=== PATIENT | female | born 1945 ===

== ENCOUNTER 2017-12-02 10:15 | Inpatient (IN) | payer MEDICARE ==
[2017-12-02 10:26] LABS: #Lymphocytes 1.1 thou/uL (1.20-3.40); #Monocytes 0.7 thou/uL (0.11-0.59); #Neutrophils 7.5 thou/uL (1.40-6.50); %Basophils 0.4 % (0.0-1.0); %Eosinophils 0.2 % (0.0-10.0); %Lymphocytes 11.8 % (21.0-51.0); %Monocytes 7.8 % (0.0-10.0); %Neutrophils 79.8 % (42.0-75.0); Hemoglobin 9.5 g/dL (12.0-16.0); Mean Corpuscular HGB CONC 32.3 g/dL (32.0-36.0); Mean Corpuscular Hemoglobin 30.4 pg (27.0-31.0); Mean Corpuscular Volume 94.1 fl (81.0-99.0); Mean Platelet Volume 8.8 fL (7.4-10.4); Platelet Count 174 thou/uL (130-400); Red Blood Cell (RBC) Count 3.11 mill/uL (4.20-5.40); White Blood Cell (WBC) Count 9.5 thou/uL (4.8-10.8)
[2017-12-02 10:35] LABS: INR-International Normal Ratio 1.1; Prothrombin Time 14.7 SEC (12.0-14.7)
[2017-12-02] MEDS ORDERED: levETIRAcetam 500 MG/100 ML PREMIX BAG ONE (10:38)
[2017-12-02 10:40] LABS: ALT (SGPT) 7 U/L (8-55); AST (SGOT) 13 U/L (5-34); Albumin 2.7 g/dL (3.4-4.8); Alkaline Phosphatase 81 U/L (40-150); Anion Gap 9 mmol/L (10-20); BUN (Urea Nitrogen) 20 mg/dL (9.8-20.1); Bilirubin, Total 0.5 mg/dL (0.2-1.2); Calc. Creatinine Clearance 0 mL/min (70-130); Calcium 7.6 mg/dL (7.8-10.44); Carbon Dioxide 18 mmol/L (23-31); Chloride 113 mmol/L (98-107); Estimated GFR-MDRD 85; Glucose 107 mg/dL (83-110); Potassium 4.1 mmol/L (3.5-5.1); Protein, Total 4.7 g/dL (6.0-8.3); Sodium 136 mmol/L (136-145)
--- NOTE | 2017-12-02 11:25 | RAD ---
PORTABLE AP CHEST: Date: 12/02/17 HISTORY: Patient found down by son this morning. Bleeding out of ear and nose. Patient intubated. COMPARISON: None available. FINDINGS: Cardiac pacing device overlies the right chest. Endotracheal tube is noted in place with tip overlyin g T5-6 level and just above the level of the akira. A left subclavian central venous catheter is not ed in place with tip overlying the expected location of the cavoatrial junction. Patient is rotated, limiting adequate evaluation of positioning. Postsurgical changes related to CABG are noted. Coronary artery stent overlies the left cardiac border. The lungs are clear. Degenerative changes seen in the spine. IMPRESSION: 1. Endotracheal tube and left subclavian central venous catheter noted in place. 2. No acute cardiopulmonary process. POS: [facility]
--- NOTE | 2017-12-02 11:48 | CT ---
NONCONTRAST HEAD CT CTA HEAD WITH 3D VOLUME RENDERING: CLINICAL HISTORY: Altered mental status. Patient found down with head bleeding, suspected aneurysmal rupture (SAH). FINDINGS: Diffuse subarachnoid hemorrhage is present, which is most pronounced within the suprasellar region. A discrete aneurysm is not identified. There is presumed congenital dominion of volume of A1 segment , left NELLY. Bilateral middle cerebral arteries are patent. The imaged bilateral ICAs reveal no high grade stenosis. There is no discrete basilar tip aneurysm. There is a small volume right subdural h emorrhage overlying the right cerebral convexity. A mild degree of intraventricular hemorrhage is pr esent. There is no significant midline shift. There is mild prominence of the ventricular system an d a mild degree of periventricular leukomalacia. Age indeterminate lacunar infarctions are seen with in the thalami bilaterally. There is a left temporoparietal scalp contusion/laceration. IMPRESSION: Diffuse subarachnoid hemorrhage, as well as superimposed subdural hematoma. The distribution of the subarachnoid hemorrhage favors a ruptured aneurysm, although a discrete aneurysm is not identified th at could be related to a thrombosed aneurysm or associated vasospasm from the acute hemorrhage. Ther e is intraventricular hemorrhagic extension with mild prominence of the ventricular system. Recommen d neurosurgical consultation. These findings were conveyed, via telephone, to the emergency room physician, Dr. Odilon Ferrara, as well as to the patient's surgeon, Dr. Umer Marks, at 1050 hours on 12/02/2017. CODE CR POS: [facility]
[2017-12-02 12:05] LABS: Actual Bicarbonate (HCO3a) 18.2 mEq/L (22-26); CO2 Tension 35.3 mmHg (35.0-45.0); Hematocrit-ABG 29.5 % (36.0-47.0); Hemoglobin (Hb) 9.3 g/dL (12.0-16.0); O2 Tension (PaO2) 119.4 mmHg (80.0-100.0); pH, Arterial 7.33 (7.35-7.45)
[2017-12-02 12:06] LABS: ALV-art Gradient 121.675 (0-20); Calcium, Ionized 1.1 mmol/L (1.12-1.30); Puncture Site LBA
[2017-12-02] MEDS ORDERED: Dextrose 50% Abboject 50 ML SYRINGE SLOW IVP PRN (12:21)
[2017-12-02] MEDS ORDERED: Dextrose 5% in Water 1,000 ML IV PRN (12:21)
[2017-12-02 12:25] VITALS: BMI 18.2
--- NOTE | 2017-12-02 12:31 | HP ---
HISTORY OF PRESENT ILLNESS: This is a 72-year-old woman who apparently fell down from grou nd level position at home. This was not witnessed. According to the patient's adult son the patient had multiple episodes of nausea and emesis. Soon after that the son heard a thump and apparently th e patient had fallen. He responded to his mother who was unresponsive at the time. 911 was activate d. Responding EMS found the patient in agonal respiration with a lot of vomitus on her face. The patien t was actively seizing. The seizure was interrupted with 2 mg of Ativan. The patient was then trans ported to [facility] where she was evaluated. She had external markers of trauma including bloody nares and blood from the left auditory canal. The patient was intubated at the [facility] [place] to transport to [facility]. Following brief trauma workup, the patient is transferred via ambulance to [facility] in [place], [place]. She arrived though hemodynamically stable. She was sedated and pharmacologically paralyzed. On arriving [place] coma scale was noted at 3. The patient underwent a complete physical and neuro logical examination in the emergency department. ET tube position was confirmed. The CT scan of the brain which was obtained in [place] revealed a subarachnoid hemorrhage suspiciou s for aneurysmal rupture. The patient was then taken down for repeat CT scan of the brain, this time with IV contrast to exclude aneurysmal rupture. PAST MEDICAL HISTORY: Remarkable for coronary arterial disease, degenerative arthritic disease, esse ntial hypertension and cataracts. SURGICAL HISTORY: Pertinent for coronary arterial bypass graft, left hip arthroplasty and bilateral intraocular lens implantation. SOCIAL HISTORY: According to the patient's family is negative for tobacco, ethanol or illicit drug a buse. FAMILY HISTORY: Noncontributory for this patient's age. PREHOSPITALIZATION MEDICATIONS: Include duloxetine 30 mg p.o. at bedtime, Plavix 75 mg p.o. daily, i sosorbide mononitrate 120 mg ER p.o. at bedtime, Ranexa 1000 mg p.o. b.i.d., aspirin 81 mg p.o. daily , lisinopril 10 mg p.o. b.i.d., atorvastatin 20 mg p.o. daily, gabapentin 200 mg p.o. t.i.d., Singula ir 10 mg p.o. at bedtime, Meloxicam 15 mg p.o. daily and tramadol 50 mg p.o. q.6h. p.r.n. pain. ALLERGIES: The patient apparently has no known drug allergies. REVIEW OF SYSTEMS: Review of systems could not be obtained as the patient is sedated and pharmacolog ically paralyzed on mechanical ventilatory support. PHYSICAL EXAMINATION: GENERAL: This reveals a 72-year-old normally developed woman who is in a coma, but otherwise hemodyn amically stable. VITAL SIGNS: Initial vital signs includes blood pressure 103/57, pulse 58, respiration rate 12, temp erature 99.5 degrees Fahrenheit, oxygen saturation 100% on FiO2 of 100%. End-tidal CO2 at that time was noted at 21. HEENT: Reveals pupils equal, 2 mm bilaterally and reactive to light, sluggishly. The patient has bl oody nares. Left tympanic membrane is obscured by a left hemotympanum. Right tympanic membrane is v isualized. The remainder of the head and face are atraumatic. The patient is orally intubated with a #7 endotracheal tube. CHEST: Chest wall is stable. No gross deformities or step-offs are present. There is minor bruisin g about the chest, but no lacerations present. No subcutaneous emphysema is palpated. HEART: Reveals regular rate and rhythm, no murmurs or gallops auscultated. LUNGS: Clear to auscultation bilaterally. Breathing regular and unlabored. ABDOMEN: Soft, nontender, nondistended. Bowel sounds in all 4 quadrants appear normoactive. EXTREMITIES: There are 2+ radial and pedal pulses bilaterally. No ankle edema is present. NEUROLOGIC: The patient is in deep coma with [place] coma scale of 3. However, as time passed durin g our evaluation, the patient was awakening from sedation and paralytics. [place] coma scale had imp roved to E2 M5 V1T. MUSCULOSKELETAL: Reveals 2/5 muscle strength in both upper and lower extremities which I attribute t o sedatives. Thoracic and lumbar spine were palpated free of any abnormalities. PERTINENT LABORATORY FINDINGS: Includes CBC here with 9500 white blood cells, hemoglobin 9.5, hemato crit is 29.3, platelet count 174,000. PTT and INR normal at 25 seconds and 1.1 respectively. Metabolic profile: Sodium 136, potassium is 4.1, chloride is 113, bicarbonate 18, BUN 20, creatinine 0.68, glucose 107, total bilirubin 0.5, AST and ALT noted at 13 and 7 respectively. Amylase is norm al at 29.0. I have personally reviewed the CT scan of the brain which was obtained from [facility] revealing gener alized subarachnoid hemorrhage with no mass effects. CT scan of the cervical spine reveals degenerative arthritic disease; however, no acute fracture or d islocation is noted. Repeat CT scan of the brain with a CT angiography confirms the generalized subarachnoid hemorrhage an d a right convexity small subdural hematoma with no mass effects. No evidence of aneurysm is present . Chest x-ray confirmed proper placement of the endotracheal tube, central venous catheter placement, n o pneumothorax present. IMPRESSION: 1. Status post ground level fall. 2. Generalized subarachnoid hemorrhage. 3. Right convexity subdural hematoma. 4. Left basilar skull fracture. 5. Acute posttraumatic respiratory failure. 6. Acute post-traumatic seizure. 7. Qualitative platelet dysfunction. 8. History of coronary artery disease. 9. History of essential hypertension. PLAN: 1. Neurosurgical consultation with Dr. Giron regarding the traumatic brain injury. 2. We will transfuse the patient with platelets for qualitative platelet dysfunction. 3. We will continue with full mechanical ventilatory support until the patient is neurologically sta ble. 4. We will maintain very light or no sedation in order to optimize neurological examination. 5. The patient will be loaded with Keppra for seizure prophylaxis. 6. Initiate nonpharmacological VTE prophylaxis. 7. Initiate prophylaxis for gastritis. 8. Blood pressure control will be undertaken. Goal is to maintain systolic blood pressure less than 160. The above findings and plan will be communicated to the patient's family once they arrive. Total critical care time is 75 minutes.
[2017-12-02] MEDS: Acetaminophen 1,000 MG in Premix Bag 1 BAG IVPB SCH ×3 (12:48→23:24)
[2017-12-02] MEDS: Sodium Chloride 0.9% 1,000 ML IV SCH ×2 (12:54→23:24)
[2017-12-02] MEDS ORDERED: FLU VACC TS2017-18 (>65YR) 0.5 ML SYRINGE IM ONE (14:15)
--- NOTE | 2017-12-02 14:39 | PRG ---
DATE OF SERVICE: 12/02/2017 This is a 30 minute initial hospital visit note in which 30 minutes were spent in review the imaging record, evaluation and examination of the patient, and formulation of a plan. Greater than 50% of th e time was spent in counseling on Jada Olvera. CHIEF COMPLAINT: Diffuse subarachnoid hemorrhage with acute subdural hematoma status post fall. HISTORY OF PRESENT ILLNESS: Ms. Olvera is a 72-year-old woman who was found down by her son. There w as evidently nausea and vomiting prior to the fall. Nevertheless she fell, struck the left side of h er skull and there is evidence of blood in the petrous temporal bone and mastoid air cells. There is also a right-sided acute subdural hematoma with subarachnoid hemorrhage in the sylvian fissure and c istern consistent with what appears to be an aneurysm rupture; however, CT angiogram of the brain is negative for aneurysmal source. She is on Plavix for history cardiac bypass surgery. She has been g iven platelets. PHYSICAL EXAMINATION: On my exam, she is intubated. By report, Dr. Marks has gotten her to follow amanda apodacamands, but she has localized and has opened her eyes to voice as well for a GCS of 10T IMPRESSION AND PLAN: We will continue to follow her exam closely. I would like to repeat a CT angio gram this weekend just to make sure there is not a hidden aneurysm. This certainly could be a trauma tic subarachnoid and subdural hemorrhage related to her fall, especially with the patient on Plavix. I have updated her family. DIAGNOSES: Diffuse subarachnoid hemorrhage and acute subdural hematoma status post fall.
[2017-12-02] MEDS ORDERED: Hydrocortisone Sod Succ/PF 100 mg/2 ml Vial IVP SCH (15:30)
[2017-12-02] MEDS ORDERED: ISOVUE-370 76%-LOCM 1 ML ONE (16:36)
[2017-12-02] MEDS: Ondansetron HCl/PF 4 MG/2 ML Vial IVP PRN (19:42)
[2017-12-02] MEDS: Famotidine/PF 20 mg/2ml Vial SLOW IVP SCH (20:55)
[2017-12-02] MEDS: Hydrocortisone Sod Succ/PF 100 mg/2 ml Vial IVP SCH (21:00)
[2017-12-02] MEDS ORDERED: Midazolam HCl 2 mg/2 ml Vial SLOW IVP PRN (21:06)
[2017-12-02] MEDS: Fentanyl 100 MCG/2 ML VIAL SLOW IVP PRN (23:29)
--- NOTE | 2017-12-02 23:31 | PRG ---
DATE OF SERVICE: 12/02/2017 SUBJECTIVE: The patient is a 72-year-old female status post falls from ground level with brain injur y. She is in the mechanical ventilation at this time, she is in bed, no complaints are noted. She i s easily arousable, painful and focal stimulation. OBJECTIVE: VITAL SIGNS: Has been reviewed, otherwise noted as, patient's blood pressure has been somewhat on th e lower side. Dr. Marks has been aware of this. We will continue to monitor. NEUROLOGIC: GCS on my examination is . ASSESSMENT: This is a 72-year-old female status post falls with brain injury, continue care as detai led in the daily progress note and history and physical. Continue to monitor. We will repeat CT in the a.m.
[2017-12-03] MEDS ORDERED: Midazolam HCl 2 mg/2 ml Vial SLOW IVP SCH (00:45)
[2017-12-03] MEDS ORDERED: Fentanyl 100 MCG/2 ML VIAL SLOW IVP SCH ×2 (01:30→04:45)
[2017-12-03] MEDS: Fentanyl 100 MCG/2 ML VIAL SLOW IVP PRN (02:46)
[2017-12-03] MEDS: Hydrocortisone Sod Succ/PF 100 mg/2 ml Vial IVP SCH ×4 (04:05→21:50)
[2017-12-03] MEDS ORDERED: Fentanyl 100 MCG/2 ML VIAL SLOW IVP PRN (04:42)
[2017-12-03 05:58] LABS: #Lymphocytes 0.8 thou/uL (1.20-3.40); #Monocytes 0.4 thou/uL (0.11-0.59); #Neutrophils 5.8 thou/uL (1.40-6.50); %Lymphocytes 10.8 % (21.0-51.0); %Monocytes 6.1 % (0.0-10.0); Hemoglobin 8.5 g/dL (12.0-16.0); Mean Corpuscular HGB CONC 31.7 g/dL (32.0-36.0); Mean Corpuscular Hemoglobin 30.5 pg (27.0-31.0); Mean Corpuscular Volume 95.9 fl (81.0-99.0); Mean Platelet Volume 8.8 fL (7.4-10.4); Platelet Count 202 thou/uL (130-400); RBC Distribution Width 13.3 % (11.5-14.5)
[2017-12-03 06:25] LABS: Anion Gap 11 mmol/L (10-20); BUN (Urea Nitrogen) 15 mg/dL (9.8-20.1); Calc. Creatinine Clearance 54 mL/min (70-130); Calcium 7.9 mg/dL (7.8-10.44); Carbon Dioxide 17 mmol/L (23-31); Chloride 116 mmol/L (98-107); Estimated GFR-MDRD 82; Glucose 110 mg/dL (83-110); Potassium 3.8 mmol/L (3.5-5.1); Sodium 140 mmol/L (136-145)
[2017-12-03 06:40] LABS: CO2 Tension 31.6 mmHg (35.0-45.0); O2 Tension (PaO2) 132.1 mmHg (80.0-100.0); pH, Arterial 7.34 (7.35-7.45)
[2017-12-03 06:41] LABS: Actual Bicarbonate (HCO3a) 16.8 mEq/L (22-26); Base Excess (BEa) -8.1 mEq/L (0 (+/-) 2.5); Calcium, Ionized 1.2 mmol/L (1.12-1.30); Hematocrit-ABG 26.4 % (36.0-47.0); Hemoglobin (Hb) 8.4 g/dL (12.0-16.0); Puncture Site RBA
[2017-12-03] MEDS: Acetaminophen 1,000 MG in Premix Bag 1 BAG IVPB SCH ×2 (06:49→11:09)
[2017-12-03] MEDS ORDERED: Furosemide 40 MG/4 ML VIAL ONE (08:16)
[2017-12-03] MEDS: Sodium Chloride 0.9% 1,000 ML IV SCH ×2 (08:20→21:41)
[2017-12-03] MEDS: Famotidine/PF 20 mg/2ml Vial SLOW IVP SCH ×2 (08:22→21:50)
[2017-12-03] MEDS: Atorvastatin Calcium 20 MG TAB PO SCH (08:22)
[2017-12-03] MEDS ORDERED: Furosemide 20 MG/2 ML VIAL SLOW IVP SCH (08:30)
--- NOTE | 2017-12-03 08:52 | CT ---
PRELIMINARY REPORT/[facility]/EMERGENCY AFTER HOURS PROCEDURE: EXAM: CT Head Without Intravenous Contrast CLINICAL HISTORY: 72 years old, female; Condition or disease; Other: Hemorrhage; Patient HX: F/u tbi TECHNIQUE: Axial computed tomography images of the head/brain without intravenous contrast. COMPARISON: CTA Angio Head W GAEL Melgoza 2017-12-02 10:24 FINDINGS: As before, prominent diffuse subarachnoid blood is present, probably not significantly changed in the interval. Small amount of intraventricular blood in the occipital horns of the lateral ventricles, unchanged. Small right subdural hematoma, maximum thickness about 3 mm, unchanged. Small amount of subdural or subarachnoid blood layering along the right tentorium, probably not signi ficantly changed. No definite new hemorrhage in the interval. Probably no significant mass effect or midline shift at this time. Ventricle size is stable, within normal limits. There is relatively symmetrical decreased attenuation in the periventricular white matter, likely fro m microvascular disease. Suspect very small old lacunar infarcts in the basal ganglia regions bilaterally, and left thalamus. No definite acute infarct by CT. No definite acute skull fracture. Mild opacity/fluid in the ethmoid sinuses. Included paranasal sinuses otherwise appear essentially clear. IMPRESSION: Essentially stable diffuse subarachnoid, right subdural, and intraventricular blood. See above detail s. No definite new hemorrhage in the interval. Probably no significant mass effect or midline shift. Changes of microvascular disease, and old lacunar infarcts. Thank you for allowing us to participate in the care of your patient. Dictated and Authenticated by: Tomasz Mcknight MD 12/03/2017 4:10 AM Central Time ([place] & [place]) FINAL REPORT EMERGENCY AFTER HOURS NONCONTRAST CT HEAD: Date: 12/03/17 HISTORY: Traumatic brain injury. COMPARISON: CT head and CT angiogram head on 12/02/17. IMPRESSION: 1. Again noted are scattered areas of subarachnoid hemorrhage seen throughout the cerebral hemispher es bilaterally. 2. Stable small right subdural hematoma. 3. Intraventricular hemorrhage, which may be slightly increased on the right. 4. Chronic small vessel ischemic changes. No acute cortical infarction is seen. 5. No new areas of hemorrhage are identified. 6. Opacification of left mastoid air cells. This is unchanged from prior study. Mucosal thickening i s also again present in ethmoidal air cells and each sphenoid sinus with endotracheal tube noted in p lace. Findings are in agreement with the preliminary report by Miguel. POS: [facility]
--- NOTE | 2017-12-03 10:41 | RAD ---
PORTABLE AP CHEST: Date: 12/03/17 HISTORY: Respiratory failure. COMPARISON: 12/02/17. FINDINGS: Endotracheal tube and left subclavian central venous catheter remain in place and unchanged in positi on. There has been interval placement of a nasogastric tube with tip overlying the expected location of the gastric fundus. Postsurgical changes related to CABG are again present. Coronary artery stents overlie the left cardiac border. There is increased density at the medial right lung base probably r elated to an epicardial fat pad. Lungs are otherwise clear. Pacing device overlying the right chest i s no longer present. No other interval change. IMPRESSION: 1. Interval placement of a nasogastric tube. Remaining lines and tubes are stable in position. 2. No acute cardiopulmonary process. POS: [facility]
--- NOTE | 2017-12-03 10:47 | PRG ---
DATE OF SERVICE: 12/03/2017 This is a 15-minute subsequent visit note in which 15 minutes were spent in review of the imaging rec ord, evaluation and examination of the patient, and formulation of a plan. Greater than 50% of the t ramakrishna was spent in counseling on Jada Olvera. Ms. Olvera has now been extubated. She follows command s in all 4 extremities and appears to be certainly neurologically improving. Her head CT this mornin g demonstrates some improvement in the multi-compartmental intracranial blood products with no worris ome enlargement in her ventricular system. We will continue to follow along closely with a plan to r epeat a CT angiogram of the brain over the next few days while her bleed pattern looks as if it is co nsistent with an aneurysm rupture. We have found nothing on the initial CT angiogram. Of note, she likely has a left temporal bone fracture in the skull base, but it is very difficult to ascertain thi s on the head CT. Nevertheless, she does have blood in her petrous and mastoid air cells. We will c sheba to follow along. DIAGNOSIS: Subarachnoid hemorrhage with fall.
--- NOTE | 2017-12-03 11:11 | PRG ---
DATE OF SERVICE: 12/03/2017 SUBJECTIVE: Ms. lOvera is a 72-year-old woman who is status post ground level fall sustaining severe acute traumatic brain injury. She is currently on mechanical ventilatory support. She is slightly s edated. She awakens to voice, moves all extremities and follows commands. Overnight, her blood pres sure has been stable. No seizure activities were documented overnight. PHYSICAL EXAMINATION: VITAL SIGNS: Currently includes blood pressure 122/48, pulse is 80, respiratory rate is 9, maximum t emperatures since admission is 99.5 degrees Fahrenheit, and oxygen saturation currently is 100% on Fi O2 of 40%. HEENT: Examination reveals decreased left hemotympanum. No active nasal discharge. Pupils are equa l, round, and reactive to light and accommodation. Extraocular muscles are intact bilaterally. No s cleral icterus present. The patient has no jugular distention noted. HEART: Reveals regular rate and rhythm, no murmurs or gallops auscultated. LUNGS: Clear to auscultation bilaterally. Her breathing is regular and unlabored. ABDOMEN: Soft, nontender and nondistended. NEUROLOGIC: Examination reveals no focal deficits present. LABORATORY DATA AND IMAGING DATA: Pertinent laboratory findings today includes CBC with 7,000 white blood cells, hemoglobin and hematocrit 8.5 and 26.9 respectively. Platelet count is 202,000. Metabo lic profile: Sodium 140, potassium is 3.8, chloride is 116, bicarbonate 17, BUN 15, creatinine 0.70, and glucose is 110. I have personally reviewed repeat CT scan of the brain today which shows resolving diffuse subarachno id hemorrhage. The right subdural hematoma remains stable. IMPRESSION: 1. Status post ground level fall. 2. Acute traumatic brain injury, stable. 3. Acute posttraumatic respiratory failure, improving. 4. Status post posttraumatic seizure disorder. No recurrent seizures since admission. PLAN: 1. We will wean mechanical ventilator support and extubate patient accordingly. 2. Initiate physical and occupational therapy. 3. Will ask speech and language pathologist to evaluate the patient with regards to cognition, speec h and swallow. 4. Continue with seizure prophylaxis at the discretion of the Neurosurgery Service. Above findings and plan discussed with patient's son at bedside. He indicates understanding of the i nformation given. I answered his questions. Total critical care time is 45 minutes.
--- NOTE | 2017-12-03 21:29 | PRG ---
DATE OF SERVICE: 12/03/2017 SUBJECTIVE: This is a 72-year-old female stats post ground level fall with traumatic brain injury. She was extubated today. She is resting comfortably in ICU, still exam remains stable. No other com plaints at this time. OBJECTIVE: VITAL SIGNS: Have been reviewed and otherwise stable. Physical exam is unremarkable other than notable in the progress note. ASSESSMENT AND PLAN: Continue care as detailed in the daily progress note as well continue to monito r PT/OT. DISCHARGE DISPOSITION: Pending.
[2017-12-04] MEDS: Hydrocortisone Sod Succ/PF 100 mg/2 ml Vial IVP SCH ×4 (05:00→21:18)
[2017-12-04] MEDS: Sodium Chloride 0.9% 1,000 ML IV SCH ×2 (05:52→12:58)
[2017-12-04] MEDS: Famotidine/PF 20 mg/2ml Vial SLOW IVP SCH ×2 (08:36→21:18)
[2017-12-04] MEDS: Ondansetron HCl/PF 4 MG/2 ML Vial IVP PRN (08:38)
[2017-12-04] MEDS: Atorvastatin Calcium 20 MG TAB PO SCH (08:38)
--- NOTE | 2017-12-04 15:15 | PRG ---
DATE OF SERVICE: 12/04/2017 This is a 15-minute subsequent visit note, in which 15 minutes were spent in reviewing the imaging, r ecord, evaluation and examination of the patient, and formulation of a plan. Greater than 50% of the time was spent in counseling. Ms. Olvera is doing well this morning. She is alert. She has a baseline history of dementia and is c onfused, but it pleasantly so and follows commands in all 4 extremities with no apparent focal defici ts. A head CT yesterday demonstrated no ventricular enlargement, but still with thick subarachnoid h emorrhage. As such, I would like to hold off for couple of days on a repeat CT angiogram. We will c ontinue to monitor at this point in the ICU and I will continue IV fluids. Risk of vasospasm is some what lower in younger patients with subarachnoid hemorrhage given the arteriosclerosis that elderly p atient have. It would be good to keep her hydrated in this regard. At this point, I suspect her sub arachnoid hemorrhage is traumatic, despite the aneurysm pattern and again, we will repeat a CT angiog laureen this week.
--- NOTE | 2017-12-04 15:58 | PRG ---
DATE OF VISIT: 12/04/2017. SUBJECTIVE: Ms. Wolf is post-admission day #2, status post apparent ground level fall sustaining a traumatic brain injury including a diffuse bilateral subarachnoid hemorrhages and small right conv exity subdural hematoma. She was extubated yesterday and has remained stable since. Today, she is awake and alert. [place] coma scale is noted at E4 V4 M6. She denies any dyspnea, chest pain or syncope. OBJECTIVE: VITAL SIGNS: Today includes blood pressure 142/59, pulse is 89, respiratory rate is 13, maximum temp erature in the last 24 hours is 98.9 degrees Fahrenheit, oxygen saturation currently is 95% on 2 lite rs by nasal cannula oxygen. HEENT: Pupils are equal, round, and reactive to light and accommodation. She has no jugular venous distention noted. HEART: Reveals regular rate and rhythm, no murmurs or gallops auscultated. CHEST: Clear to auscultation bilaterally. Her breathing is regular and unlabored. ABDOMEN: Soft, nontender and nondistended. Liver and spleen are nonpalpable below costal margins. EXTREMITIES: Reveals 2+ radial and pedal pulses bilaterally. No ankle edema is present. NEUROLOGIC: Reveals no focal deficits present. MUSCULOSKELETAL: Reveals 5/5 muscle strength in both upper and lower extremities bilaterally. IMPRESSION: 1. Post-admission day #2, status post ground level fall. 2. Diffuse bilateral subarachnoid hemorrhages and right convexity subdural hematoma, neurologically improved. PLAN: 1. Continue with physical and occupational therapy and increase activity as tolerated. 2. We will ask PMNR to evaluate the patient in anticipation for inpatient rehabilitation. Continue to monitor the patient's neurological function to exclude any onset of vasospasm or cerebral salt wasting. Above findings and plan has been discussed with the patient and her son at bedside. They both indicated understanding of information given. I answered their questions.
[2017-12-04] MEDS: Acetaminophen 500 MG TAB PO PRN (21:46)
[2017-12-05] MEDS: Sodium Chloride 0.9% 1,000 ML IV SCH (01:43)
--- NOTE | 2017-12-05 02:29 | PRG ---
DATE OF SERVICE: 12/04/2017 SUBJECTIVE: This is a 72-year-old female, status post fall with traumatic brain injury. There are no complaints at this time. Patient does appears slightly agitated. Otherwise stable. OBJECTIVE: Vital signs have been reviewed, otherwise stable. Physical exam is unchanged. ASSESSMENT AND PLAN: A 72-year-old female status post fall with traumatic brain injury. Continue ca re that detailed in daily progress note. Continue to monitor. Discharge disposition is pending.
[2017-12-05 04:42] LABS: #Lymphocytes 0.7 thou/uL (1.20-3.40); #Monocytes 0.7 thou/uL (0.11-0.59); #Neutrophils 8.4 thou/uL (1.40-6.50); %Basophils 0.1 % (0.0-1.0); %Eosinophils 0.1 % (0.0-10.0); %Lymphocytes 6.8 % (21.0-51.0); %Monocytes 7.1 % (0.0-10.0); %Neutrophils 85.9 % (42.0-75.0); Hemoglobin 9.3 g/dL (12.0-16.0); Mean Corpuscular HGB CONC 33.1 g/dL (32.0-36.0); Mean Corpuscular Hemoglobin 30.8 pg (27.0-31.0); Mean Corpuscular Volume 93.1 fl (81.0-99.0); Mean Platelet Volume 9.4 fL (7.4-10.4); Platelet Count 204 thou/uL (130-400); RBC Distribution Width 13.6 % (11.5-14.5); Red Blood Cell (RBC) Count 3.02 mill/uL (4.20-5.40); White Blood Cell (WBC) Count 9.8 thou/uL (4.8-10.8)
[2017-12-05] MEDS: Hydrocortisone Sod Succ/PF 100 mg/2 ml Vial IVP SCH ×3 (04:58→20:08)
[2017-12-05 05:04] LABS: Anion Gap 10 mmol/L (10-20); BUN (Urea Nitrogen) 19 mg/dL (9.8-20.1); Calc. Creatinine Clearance 60 mL/min (70-130); Calcium 8.5 mg/dL (7.8-10.44); Carbon Dioxide 19 mmol/L (23-31); Chloride 118 mmol/L (98-107); Estimated GFR-MDRD Greater than 90; Glucose 161 mg/dL (83-110); Magnesium 1.9 mg/dL (1.6-2.6); Sodium 144 mmol/L (136-145)
[2017-12-05 05:21] LABS: Phosphorus 1.2 mg/dL (2.3-4.7); Potassium 2.9 mmol/L (3.5-5.1)
[2017-12-05] MEDS ORDERED: Potassium Phosphate 30 MMOL in Sodium Chloride 0.9% 250 ML 250 ML IVPB SCH (06:30)
[2017-12-05] MEDS: Famotidine/PF 20 mg/2ml Vial SLOW IVP SCH ×2 (08:47→20:08)
[2017-12-05] MEDS: Atorvastatin Calcium 20 MG TAB PO SCH (08:48)
[2017-12-05] MEDS ORDERED: Furosemide 20 MG/2 ML VIAL SLOW IVP SCH (09:15)
--- NOTE | 2017-12-05 09:53 | PRG ---
DATE OF SERVICE: 12/05/2017 SUBJECTIVE: Ms. Olvera is now hospital day #3 having sustained a subarachnoid hemorrhage. She does c ontinue to improve. Today, she is a little sleepy on exam, but is able to answer all orientation que stions and follow commands sequelae in all 4 extremities. Her potassium is low at 2.9 and this is be ing managed by our Trauma colleagues. At this point, we will plan to repeat her brain CTA on to evaluate for possible aneurysm. We will continue to follow her fluid balance as well as her so dium. Please call with any questions or changes in the patient's neurologic status. Otherwise, the patient is doing well. Miles Merrill PA-C dictating for Dr. Jose Giron.
[2017-12-05] MEDS ORDERED: Sodium Bicarb 50 MEQ/50 ML Abboject 8.4% SYRINGE IVP SCH ×2 (10:15→15:30)
--- NOTE | 2017-12-05 10:42 | RAD ---
CHEST 1 VIEW: HISTORY: Hypervolemia. COMPARISON: 12/03/17. FINDINGS: Redemonstration of left-sided central venous catheter. There are sternotomy wires. There is interva l development of bilateral pleural effusions with bilateral perihilar and interstitial and alveolar i nfiltrates. Volume overload is suspected. No pneumothorax. Interval removal of nasogastric and end otracheal tubes. Stable coronary calcification. IMPRESSION: 1. Redemonstration of left-sided central venous catheter. 2. Interval removal of endotracheal and nasogastric tubes. 3. Volume overload. 4. Results of the study discussed with Dr. Marks 12/05/17 at 9:45 a.m. CODE CR POS: [facility]
[2017-12-05] MEDS ORDERED: ISOVUE-370 76%-LOCM 1 ML ONE (11:11)
[2017-12-05] MEDS ORDERED: Hydrocortisone Sod Succ/PF 100 mg/2 ml Vial IVP SCH (12:00)
--- NOTE | 2017-12-05 12:14 | PRG ---
DATE OF SERVICE: 12/05/2017 SUBJECTIVE: Ms. Olvera is awake and alert today. Matthew coma scale is E4 V4 M6. She tolerates a thickened liquid diet. She is requiring high fraction of oxygen overnight due to hyp oxemia. She is currently on 3 liters by nasal cannula oxygen achieving 89%-90% oxygen saturation. T he patient, however, denies any dyspnea. OBJECTIVE: VITAL SIGNS: Currently includes blood pressure 187/80, pulse is 94, respiratory rate is 20. Maximum temperature in the last 24 hours is 98.8 degrees Fahrenheit. Oxygen saturation is 90% on 3 liters b y nasal cannula oxygen. HEENT EXAMINATION: Reveals pupils, which are equal, round, and reactive to light and accommodation. She has bilateral scleral edema present. No jugular venous distention noted. HEART: Reveals regular rate and rhythm. No murmurs or gallops auscultated. LUNGS: Reveals scattered rhonchi. Breathing regular and unlabored. ABDOMEN: Soft, nontender, and nondistended. Liver and spleen remain nonpalpable below costal margin s. EXTREMITIES: Reveal 2+ radial and pedal pulses bilaterally. She has trace bilateral ankle edema pre sent. NEUROLOGICAL EXAMINATION: Reveals no focal deficits present. PERTINENT LABORATORY FINDINGS: Today includes CBC with 9800 white blood cells, hemoglobin 9.3, hemat ocrit 28.1, platelet count is 204,000. Metabolic profile: Sodium 144, potassium 2.9, chloride 118, bicarbonate 19, BUN 19, creatinine is 0.63, glucose is 161, magnesium is 1.9, phosphorus is 1.2. Ser um BNP is 1266. Chest x-ray was obtained today and shows bilateral pleural effusions with bilateral perihilar alveola r infiltrates and a slight cardiomegaly. I have also evaluated with a repeat CT angiography of the b rain, which now shows enlarged right convexity subdural hematoma with 5 mm right to left midline shif t. The previously noted diffuse subarachnoid hemorrhage is resolving. No radiographic evidence of a neurysm or vasospasm is noted. IMPRESSION: 1. Right convexity subdural hematoma with mild right to left midline shift. 2. Resolving diffuse subarachnoid hemorrhage. 3. Acute systolic congestive heart failure. 4. Acute hypokalemia. 5. Acute hypophosphatemia. 6. Acute hypomagnesemia. PLAN: 1. We will initiate gentle diuresis. 2. Correct abnormal electrolytes. Above findings and plan discussed with the patient and her adult son at bedside in the presence of deondre toledo patient's nurse. They have indicated understanding of information given. I answered their questio ns.
--- NOTE | 2017-12-05 13:45 | CT ---
CT ANGIOGRAM HEAD: HISTORY: Evaluate for vasospasm. The patient has a subarachnoid hemorrhage. COMPARISON: 12/02/2017 and 12/03/2017 TECHNIQUE: A noncontrast head CT is performed in the axial plane. Sagittal and coronal three-dimensional reform atted images are submitted for interpretation, after performing a CT angiogram of the grayling of Willi s. FINDINGS: Noncontrast head CT re-demonstrates subarachnoid hemorrhage along the interfalcine sulci, the right f rontal sulci, the right and left temporal sulci, and both sylvian fissures, as well as the interpedun cular system. There is also evidence of intraventricular hemorrhage, especially in the occipital hor n of the left lateral ventricle, similar to the prior exam. There is also hemorrhage in the occipita l and right lateral ventricle. Slight asymmetric increase of the left occipital horn does remain. T here is evidence of an interval right frontal temporal parietal subdural hematoma. There are linear areas of hyperdensity along the right temporal convexity, suggesting an acute component. Interval de velopment of 5 mm of right to left subfalcine herniation. Basilar cisterns appear to be patent. Intact calvarium. CT ANGIGORAM: The distal cervical carotid arteries have symmetric enhancement and luminal diameter. The cavernous segments have appropriate enhancement and luminal diameter. ANTERIOR CIRCULATION: There is symmetric enhancement and luminal diameter of the M1 segments. There is a diminutive left A1 segment, likely congenital. The right A1 segment is unremarkable. The prox imal A1 segments are unremarkable. No evidence of vascular occlusion, aneurysm, or vasospasm is appr eciated. POSTERIOR CIRCULATION: Intracranial vertebral arteries are unremarkable. Grossly, both PICA artery origins are also unremarkable. Both vertebral arteries supply a normal caliber basilar artery. Appr opriate enhancement in luminal diameter. IMPRESSION: 1. Interval development of a right-sided subdural hematoma, hypodense, suggesting a predominantly cobb bacute lesion. There are some areas of hyperdensity suggesting an acute component. 2. No evidence of aneurysm. No evidence of vascular thrombosis. No evidence of vasospasm. 3. Interval development of right to left subfalcine herniation. The results of the study were discussed with Dr. Marks on 12/05/2017 at 11:45 a.m. CODE CR POS: [facility]
[2017-12-05] MEDS: Acetaminophen 500 MG TAB PO PRN ×2 (15:47→22:13)
[2017-12-05] MEDS: Ondansetron HCl/PF 4 MG/2 ML Vial IVP PRN (17:52)
[2017-12-05 18:28] LABS: Anion Gap 11 mmol/L (10-20); BUN (Urea Nitrogen) 15 mg/dL (9.8-20.1); Calc. Creatinine Clearance 62 mL/min (70-130); Calcium 8.3 mg/dL (7.8-10.44); Carbon Dioxide 24 mmol/L (23-31); Chloride 118 mmol/L (98-107); Estimated GFR-MDRD Greater than 90; Glucose 159 mg/dL (83-110); Magnesium 2.1 mg/dL (1.6-2.6); Phosphorus 1.9 mg/dL (2.3-4.7); Potassium 2.9 mmol/L (3.5-5.1); Sodium 150 mmol/L (136-145)
[2017-12-05] MEDS ORDERED: Potassium Phosphate 30 MMOL in Sodium Chloride 0.9% 500 ML IVPB SCH (19:00)
[2017-12-05] MEDS ORDERED: Potassium Chloride 20 MEQ TAB PO SCH (23:30)
[2017-12-06] MEDS ORDERED: Furosemide 20 MG/2 ML VIAL SLOW IVP SCH (01:15)
--- NOTE | 2017-12-06 04:29 | PRG ---
DATE OF SERVICE: 12/05/2017 SUBJECTIVE: No acute changes today. OBJECTIVE: VITAL SIGNS: Reviewed and is otherwise had been stable. Physical exam is unremarkable. ASSESSMENT AND PLAN: Continue care as detailed in the daily progress note. Continue to monitor. Di scussed with Dr. Marks regarding Seroquel for agitation at night. He agreed. DISCHARGE DISPOSITION: Pending.
[2017-12-06 04:45] LABS: Anion Gap 11 mmol/L (10-20); BUN (Urea Nitrogen) 15 mg/dL (9.8-20.1); Calc. Creatinine Clearance 59 mL/min (70-130); Calcium 8.1 mg/dL (7.8-10.44); Carbon Dioxide 27 mmol/L (23-31); Chloride 117 mmol/L (98-107); Estimated GFR-MDRD 90; Glucose 145 mg/dL (83-110); Sodium 152 mmol/L (136-145)
[2017-12-06 04:49] LABS: Phosphorus 1.9 mg/dL (2.3-4.7); Potassium 2.9 mmol/L (3.5-5.1)
--- NOTE | 2017-12-06 08:06 | RAD ---
CHEST 1 VIEW: HISTORY: Hypoxia. COMPARISON: Chest 1 view 12/03/17. FINDINGS: Bilateral layering pleural effusions are present, larger on the right with layering. There are exten sive perihilar opacities. No pneumothorax. The patient has been extubated and enteric tube has been removed. IMPRESSION: 1. Extensive new interstitial opacities the perihilar prominence from the comparison examination con cerning for pulmonary edema given this rapid evolution. 2. New layering right pleural effusion. POS: [facility]
[2017-12-06] MEDS: Famotidine 20 MG TAB PO SCH ×2 (08:53→21:33)
[2017-12-06] MEDS: Acetaminophen 500 MG TAB PO PRN (08:53)
[2017-12-06] MEDS: Furosemide 20 MG/2 ML VIAL SLOW IVP SCH ×2 (08:54→16:10)
[2017-12-06] MEDS: Hydrocortisone Sod Succ/PF 100 mg/2 ml Vial IVP SCH ×2 (09:07→21:47)
[2017-12-06] MEDS: Atorvastatin Calcium 20 MG TAB PO SCH (09:08)
[2017-12-06] MEDS ORDERED: POTASSIUM PHOSPHATE IVPB SCH ×2 (09:45)
[2017-12-06] MEDS ORDERED: WATER IVPB SCH ×2 (09:45)
[2017-12-06] MEDS ORDERED: DEXTROSE 5% IVPB SCH ×2 (09:45)
[2017-12-06] MEDS ORDERED: Scopolamine 1.5 mg/72 hour Patch TD SCH (10:00)
--- NOTE | 2017-12-06 14:35 | PRG ---
DATE OF SERVICE: 12/06/2017 SUBJECTIVE: Ms. Olvera is awake and alert. She had some respiratory difficulties last night with hyp oxemia, which was resolved with noninvasive mechanical ventilatory support. This morning, she is on 3 liters by nasal cannula oxygen, achieving oxygen saturation of 94%. She denies any dyspnea, syncop e or chest pain. Matthew coma scale is noted at E4 V4 M6. OBJECTIVE: VITAL SIGNS: Currently includes blood pressure 139/31, pulse is 89, respiratory rate is 24, temperat ure 98.2 degrees Fahrenheit, oxygen saturation is between 95%-97% on 3 liters by nasal cannula oxygen . HEENT: Examination reveals normocephalic and atraumatic. She has resolved bilateral scleral edema. NECK: She has no jugular venous distention noted. HEART: Reveals regular rate and rhythm, no murmurs or gallops auscultated. LUNGS: Reveals scattered rhonchi. Breathing is regular and unlabored. ABDOMEN: Soft, nontender and nondistended. Liver and spleen are nonpalpable below costal margins. NEUROLOGIC: Examination reveals no focal deficits present. LABORATORY DATA: Pertinent laboratory findings today includes metabolic profile: Sodium 152, potass ium is 2.9, chloride is 117, bicarbonate is 27, BUN 15, creatinine 0.65, glucose 145, phosphorus 1.9, and magnesium is 2.0. IMAGING DATA: Chest x-ray today reveals bilateral interstitial and alveolar infiltrates with increas e in perihilar markings and cephalization. IMPRESSION: 1. 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 2. Resolving bilateral subarachnoid hemorrhages. 3. Stable right subdural hematoma. 4. Acute systolic congestive heart failure, improving. 5. Acute hypernatremia. 6. Acute hypokalemia. 7. Acute hypomagnesemia. 8. Acute hypophosphatemia. PLAN: 1. Continue gentle diuresis. 2. Correct abnormal electrolytes. 3. Increase activity per physical and occupational therapy. 4. Advance diet as directed by speech and language pathology. 5. Increase free water intake by mouth as patient tolerates, trying to maintain sodium between 140 a nd 145. 6. Above findings and plan discussed with the patient and her son at bedside. They both indicated u nderstanding of information given. I answered their questions.
[2017-12-06 19:25] LABS: Anion Gap 15 mmol/L (10-20); BUN (Urea Nitrogen) 17 mg/dL (9.8-20.1); Calc. Creatinine Clearance 54 mL/min (70-130); Calcium 8.4 mg/dL (7.8-10.44); Carbon Dioxide 28 mmol/L (23-31); Chloride 110 mmol/L (98-107); Estimated GFR-MDRD 82; Glucose 133 mg/dL (83-110); Phosphorus 2.5 mg/dL (2.3-4.7); Potassium 3.1 mmol/L (3.5-5.1); Sodium 150 mmol/L (136-145)
[2017-12-06] MEDS ORDERED: Potassium Chloride 20 MEQ TAB PO SCH (21:00)
[2017-12-06] MEDS: Lisinopril 10 MG TAB PO SCH (21:34)
[2017-12-06] MEDS: DULoxetine 30 MG CAP PO SCH (21:35)
[2017-12-06] MEDS: Gabapentin 100 MG CAP PO SCH (21:36)
[2017-12-07] MEDS: Furosemide 20 MG/2 ML VIAL SLOW IVP SCH (00:21)
--- NOTE | 2017-12-07 00:58 | PRG ---
DATE OF SERVICE: 12/06/2017 SUBJECTIVE: This is a 72-year-old female, status post ground-level fall with subdural hematoma, suba rachnoid hemorrhage, basilar skull fracture, and posttraumatic seizures. Patient has been stable fro m a respiratory status throughout the day. Upon my evaluation, she is sitting in a chair, out of bed , and vocalized no complaints. OBJECTIVE: VITAL SIGNS: Reviewed and stable. O2 sat is 93% on 2 L nasal canula. GENERAL: Sitting in stair, out of bed. LUNGS: Breathing is nonlabored. ASSESSMENT AND PLAN: As documented in daily progress note. Continue care as ordered. Continue to m onitor. Electrolyte replacement via p.o. as patient is currently being diuresed. A.m. labs.
[2017-12-07 04:59] LABS: Anion Gap 13 mmol/L (10-20); BUN (Urea Nitrogen) 19 mg/dL (9.8-20.1); Calc. Creatinine Clearance 60 mL/min (70-130); Carbon Dioxide 29 mmol/L (23-31); Chloride 109 mmol/L (98-107); Estimated GFR-MDRD Greater than 90; Glucose 127 mg/dL (83-110); Magnesium 1.7 mg/dL (1.6-2.6); Phosphorus 2.4 mg/dL (2.3-4.7); Potassium 3.6 mmol/L (3.5-5.1); Sodium 147 mmol/L (136-145)
[2017-12-07] MEDS ORDERED: Magnesium Sulfate 4 GM in Sodium Chloride 0.9% 250 ML 250 ML IVPB SCH (07:30)
[2017-12-07] MEDS ORDERED: Magnesium Sulfate 4 GM, Potassium Chloride 40 MEQ in Sodium Chloride 0.9% 250 ML 250 ML IVPB SCH (08:15)
[2017-12-07] MEDS ORDERED: Magnesium Sulfate 4 GM, Potassium Phosphate 30 MMOL in Sodium Chloride 0.9% 250 ML 250 ML IVPB SCH (08:15)
[2017-12-07] MEDS: Atorvastatin Calcium 20 MG TAB PO SCH (08:44)
[2017-12-07] MEDS: Famotidine 20 MG TAB PO SCH ×2 (08:44→21:33)
[2017-12-07] MEDS: Gabapentin 100 MG CAP PO SCH ×2 (08:45→18:11)
[2017-12-07] MEDS: Hydrocortisone Sod Succ/PF 100 mg/2 ml Vial IVP SCH ×2 (08:54→21:35)
[2017-12-07] MEDS ORDERED: Melatonin 3 MG TAB PO PRN (08:59)
--- NOTE | 2017-12-07 09:38 | PRG ---
DATE OF SERVICE: 12/07/2017 SUBJECTIVE: Ms. Olvera is a 72-year-old woman, who is status post ground level fall, sustaining a tra umatic brain injury including diffuse subarachnoid hemorrhage as well as right convexity subdural hem atoma. The patient is awake and alert this morning. Nursing report, the patient was unable to sleep last night. This morning; however, she is sitting up in chair and eating breakfast with no assistan ce. She moves all extremities and answers questions appropriately. She is slightly amnestic to rece nt events. Matthew coma scale therefore is E4V4M6. She has adequate urinary output. OBJECTIVE: VITAL SIGNS: This morning includes blood pressure 161/83, pulse is 72, respiration rate is 28, tempe rature is 97.8 degrees Fahrenheit, oxygen saturation is 99% on 3 liters by nasal cannula oxygen. HEENT: Reveals normocephalic and atraumatic. Pupils are equally round and reactive to light and acc ommodation. Extraocular muscles are intact bilaterally. She has no sclerae icterus present. HEART: Reveals regular rate and rhythm, no murmurs or gallops auscultated. LUNGS: Clear to auscultation bilaterally. Her breathing regular and unlabored. ABDOMEN: Soft, nontender, nondistended. Bowel sounds in all four quadrants appear normoactive. EXTREMITIES: Reveals 2+ radial and pedal pulses bilaterally. No ankle edema is present. NEUROLOGIC: Reveals no focal deficits present at this time. PERTINENT LABORATORY FINDINGS: Includes metabolic profile: Sodium 147, potassium is 3.6, chloride i s 109, bicarbonate is 29, BUN 19, creatinine 0.63, glucose 127. Magnesium 1.7, phosphorus is 2.4. IMPRESSION: 1. Status post ground level fall with traumatic brain injury including resolving subarachnoid hemorr lien and stable right convexity subdural hematoma. 2. Acute hypokalemia. 3. Acute hypophosphatemia. 4. Acute hypomagnesemia. PLAN: 1. Continue with physical and occupational therapy. Increase activity as tolerated. 2. We will correct abnormal electrolytes. 3. We will start patient on melatonin and hopefully to restore her sleep cycle. 4. She will be transferred to the stroke unit today. We will continue her serial neurological exami nation. The above findings and plan discussed with the patient and her son at bedside. They both indicated u nderstanding of information given. I have answered their questions.
--- NOTE | 2017-12-07 10:11 | PRG ---
DATE OF SERVICE: 12/07/2017 This is a in which 15 minute subsequent visit note in which 15 minutes were spent in review of the im aging, record, evaluation and examination of the patient, and formulation of a plan. Greater than 50 % of the time was spent in counseling on Jada Olvera. Ms. Olvera is hospital day #4 for subarachnoid hemorrhage, a repeat CT angiogram was negative for vasc ular abnormality with no worrisome for vasospasm. She does have a right convexity subdural hematoma that is more subacute to chronic in nature indicating liquification of the blood. Neurologically she is alert. She has some delirium. There is concern of even prehospital dementia. Undoubtedly her h ead injury has affected this as well, although she has a nonfocal exam. We will continue to monitor her closely and likely plan for repeat head CT on .
[2017-12-07] MEDS: Lisinopril 10 MG TAB PO SCH ×2 (10:41→21:33)
[2017-12-07] MEDS ORDERED: Furosemide 40 MG/4 ML VIAL SLOW IVP SCH (15:45)
[2017-12-07] MEDS ORDERED: Furosemide 20 MG/2 ML VIAL SLOW IVP SCH ×2 (16:15→23:55)
--- NOTE | 2017-12-07 16:50 | RAD ---
PORTABLE CHEST ONE VIEW 12/07/17 at 4:04 p.m. HISTORY: Hypoxia, CHF. FINDINGS/IMPRESSION: Comparison is made with exam from previous day. Changes of median sternotomy again seen. The heart size is stable. Bilateral infiltrates and bilatera l pleural effusions are again seen. The right sided pleural effusion has increased in size. Infiltrat es show mild interval worsening. POS: [facility]
[2017-12-07] MEDS: DULoxetine 30 MG CAP PO SCH (21:32)
--- NOTE | 2017-12-07 21:44 | PRG ---
DATE OF SERVICE: 12/07/2017 SUBJECTIVE: This is a 72-year-old female status post ground level fall with CBI. The patient was transferred earlier today to the stroke unit. She did have an episode earlier this afternoon of hypoxia and altered mental status. A chest x-ray was ordered, which demonstrated increasing bilateral infiltrates and pleural effusion. The patient was given Lasix with improvement in oxygen saturations, a decrease in O2 requirements, and an improvement in mental status. Upon my evaluation, she vocalized no complaint and her son is at bedside. OBJECTIVE: VITAL SIGNS: Reviewed and stable. She is on 4 L via nasal cannula. Her last oxygen saturation is 93%. GENERAL: The patient is sitting in bed, eating dinner, in no acute distress. LUNGS: Breathing is nonlabored. Lung sounds are distant with mild rhonchi bilaterally. NEUROLOGIC: Stable. ASSESSMENT AND PLAN: As documented in daily progress note. Continue gentle diuresis. A.m. labs. Continue to monitor. Wean O2 as able. Avoid sedating medications as able. MTDD
[2017-12-08 05:23] LABS: #Lymphocytes 0.9 thou/uL (1.20-3.40); #Monocytes 0.7 thou/uL (0.11-0.59); #Neutrophils 8.5 thou/uL (1.40-6.50); %Basophils 0.3 % (0.0-1.0); %Eosinophils 0.3 % (0.0-10.0); %Lymphocytes 8.9 % (21.0-51.0); %Monocytes 7.3 % (0.0-10.0); %Neutrophils 83.3 % (42.0-75.0); Hemoglobin 8.9 g/dL (12.0-16.0); Mean Corpuscular Hemoglobin 30.1 pg (27.0-31.0); Mean Platelet Volume 9.5 fL (7.4-10.4); Platelet Count 216 thou/uL (130-400); RBC Distribution Width 14.1 % (11.5-14.5); Red Blood Cell (RBC) Count 2.94 mill/uL (4.20-5.40); White Blood Cell (WBC) Count 10.2 thou/uL (4.8-10.8)
[2017-12-08 05:41] LABS: Anion Gap 10 mmol/L (10-20); BUN (Urea Nitrogen) 26 mg/dL (9.8-20.1); Calc. Creatinine Clearance 66 mL/min (70-130); Calcium 8.1 mg/dL (7.8-10.44); Carbon Dioxide 31 mmol/L (23-31); Chloride 103 mmol/L (98-107); Estimated GFR-MDRD Greater than 90; Glucose 141 mg/dL (83-110); Phosphorus 2.2 mg/dL (2.3-4.7); Potassium 3.2 mmol/L (3.5-5.1); Sodium 141 mmol/L (136-145)
[2017-12-08] MEDS ORDERED: Furosemide 100 MG/10 ML VIAL SLOW IVP SCH (07:15)
[2017-12-08] MEDS ORDERED: Potassium Phosphate 15 MMOL, Admixture Fee 1 EACH in Sodium Chloride 0.9% 250 ML 250 ML IVPB SCH (07:15)
[2017-12-08] MEDS ORDERED: Potassium Phosphate 15 MMOL, Admixture Fee 1 EACH in Sodium Chloride 0.9% 100 ML IVPB SCH (07:30)
--- NOTE | 2017-12-08 08:04 | PRG ---
DATE OF SERVICE: 12/08/2017 Ms. Olvera is hospital day 6 following subarachnoid hemorrhage due to fall. Two CT angiograms have be en negative. Her sodium has now normalized. She has been neurologically intact with the exception o f significant confusion. She even has insomnia, her son states she has also had a right-sided subdur al hematoma. I would like to repeat a head CT and as surveillance today. Continue to follow.
[2017-12-08] MEDS ORDERED: Furosemide 20 MG/2 ML VIAL SLOW IVP SCH ×2 (08:45→09:00)
--- NOTE | 2017-12-08 09:25 | CT ---
CT OF HEAD NONCONTRAST: CLINICAL HISTORY: Subarachnoid hemorrhage, followup. FINDINGS: Redemonstration of bilateral scattered subarachnoid hemorrhage. There is a subdural component of hem orrhage overlying the right cerebellar tentorium and decreased volume of a subdural collection which was previously present overlying the right cerebral convexity. There is a mild degree of subdural he morrhage along the interhemispheric falx. The ventricular system is mildly enlarged with persistent i nterventricular hemorrhage most notable at the left occipital horn. Scattered white matter hypodensi ties remain. IMPRESSION: 1. Scattered areas of extraaxial hemorrhage, including subarachnoid and subdural hemorrhage. There has been interval redistribution with a decreased volume overlying the right convexity, which has red uced the degree of prior sulcal effacement and leftward midline shift. At the level of septum pelluc idum, there is approximately 2 mm of midline shift. 2. Mild degree of obstructive hydrocephalus related to intraventricular hemorrhage remains. POS: [facility]
[2017-12-08] MEDS ORDERED: Melatonin 3 MG TAB PO PRN (10:35)
[2017-12-08] MEDS: Lisinopril 10 MG TAB PO SCH ×2 (11:18→22:23)
[2017-12-08] MEDS: levETIRAcetam 500 MG TAB PO SCH ×2 (11:18→22:23)
[2017-12-08] MEDS: Hydrocortisone Sod Succ/PF 100 mg/2 ml Vial IVP SCH ×2 (11:20→22:24)
[2017-12-08] MEDS: Atorvastatin Calcium 20 MG TAB PO SCH (11:42)
[2017-12-08] MEDS: Famotidine 20 MG TAB PO SCH ×2 (11:43→22:24)
--- NOTE | 2017-12-08 12:22 | PRG-2 ---
DATE OF SERVICE: 12/08/2017 ATTENDING PHYSICIAN: Dr. Umer Marks. SUBJECTIVE: This is a 72-year-old female status post ground level fall, resulting in a TBI to includ e a diffuse subarachnoid hemorrhage as well as a right convexity subdural hematoma. The patient is a wake and alert this morning. Per nursing, the patient was unable to sleep all night. Although, she did sleep from 7 yesterday. There are no other acute events overnight. Yesterday, she had some issu es with desaturation. Chest x-ray showed what appeared to be pulmonary edema and she was given some Lasix. She is currently breathing easier; however, symptoms are not completely resolved. OBJECTIVE: VITAL SIGNS: Temperature 98.1, pulse 81, respiratory rate 20, pulse oximetry 91% on 3 liters nasal c annula and blood pressure 150/67. GENERAL: The patient is resting comfortably in no acute distress. HEENT: Normocephalic, atraumatic. PERRLA. EOMI. HEART: Regular rate and rhythm. No murmurs. LUNGS: Mild crackles in the bases, improved from yesterday. ABDOMEN: Soft and nontender. EXTREMITIES: Mild pitting edema. NEUROLOGIC: No focal neurologic deficits. PERTINENT LABORATORY DATA: Creatinine 0.58, BUN 26, potassium of 3.2, phosphorus 2.2 and magnesium 2 .0. Hemoglobin 8.9 and white count 10.2. ASSESSMENT: 1. Status post ground level fall with traumatic brain injury resulting in subarachnoid hemorrhage an d stable right convexity subdural hematoma. 2. Acute hypokalemia. 3. Acute hypophosphatemia. 4. Acute hypomagnesemia, resolved. 5. Volume overload. PLAN: 1. Continue physical therapy. Increase activity as tolerated. 2. Acute hypokalemia and hypophosphatemia were replaced today as the pharmacy replaced electrolytes using little total fluid as possible. Recheck labs this afternoon and replace as needed. 3. Volume overload. Schedule Lasix for both this morning and this evening, BMP in the morning. Mon itor I's and O's. The above plan assessment was reviewed with Dr. Umer Marks, who agrees.
--- NOTE | 2017-12-08 13:54 | RAD ---
MODIFIED BARIUM SWALLOW IN THE PRESENCE OF A SPEECH THERAPIST: Date: 12/08/17 HISTORY: Dysphagia following other, feeding difficulties. FINDINGS/IMPRESSION: No laryngeal penetration, aspiration, or persistent pooling of contrast in the piriform sinuses or va llecula is seen. Please see recommendations of the speech therapist for further management. POS: [facility]
[2017-12-08] MEDS: Furosemide 20 MG/2 ML VIAL SLOW IVP SCH (14:53)
[2017-12-08 16:44] LABS: Anion Gap 9 mmol/L (10-20); BUN (Urea Nitrogen) 17 mg/dL (9.8-20.1); Calc. Creatinine Clearance 60 mL/min (70-130); Calcium 8.4 mg/dL (7.8-10.44); Carbon Dioxide 35 mmol/L (23-31); Chloride 101 mmol/L (98-107); Estimated GFR-MDRD Greater than 90; Glucose 159 mg/dL (83-110); Magnesium 1.6 mg/dL (1.6-2.6); Phosphorus 3.2 mg/dL (2.3-4.7); Potassium 2.7 mmol/L (3.5-5.1); Sodium 142 mmol/L (136-145)
[2017-12-08] MEDS ORDERED: Potassium Phosphate 30 MMOL in Sodium Chloride 0.9% 250 ML 250 ML IVPB SCH (17:30)
[2017-12-08] MEDS: DULoxetine 30 MG CAP PO SCH (22:22)
[2017-12-08] MEDS: Melatonin 3 MG TAB PO SCH (22:23)
--- NOTE | 2017-12-08 22:53 | PRG ---
DATE OF SERVICE: 12/08/2017 SUBJECTIVE: This is a 72-year-old female status post fall with traumatic brain injury. The patient continues to be diuresed. Oxygen requirements are improving. Upon my evaluation, she vocalized no c omplaint. OBJECTIVE: VITAL SIGNS: Reviewed and stable. GENERAL: The patient is resting in bed. LUNGS: Breathing is nonlabored. No acute distress. NEUROLOGIC: No focal deficit noted. ASSESSMENT AND PLAN: As documented in daily progress note. Continue care as ordered. Continue to m onitor. Continue to correct electrolytes. A.m. labs.
[2017-12-09] MEDS: Furosemide 20 MG/2 ML VIAL SLOW IVP SCH ×2 (05:17→14:17)
[2017-12-09 06:47] LABS: Anion Gap 9 mmol/L (10-20); BUN (Urea Nitrogen) 18 mg/dL (9.8-20.1); Calc. Creatinine Clearance 64 mL/min (70-130); Calcium 8.1 mg/dL (7.8-10.44); Carbon Dioxide 31 mmol/L (23-31); Chloride 103 mmol/L (98-107); Estimated GFR-MDRD Greater than 90; Glucose 140 mg/dL (83-110); Magnesium 1.5 mg/dL (1.6-2.6); Phosphorus 4.3 mg/dL (2.3-4.7); Potassium 3.4 mmol/L (3.5-5.1); Sodium 140 mmol/L (136-145)
[2017-12-09] MEDS: Famotidine 20 MG TAB PO SCH ×2 (07:43→21:57)
[2017-12-09] MEDS: Atorvastatin Calcium 20 MG TAB PO SCH (07:43)
[2017-12-09] MEDS: Lisinopril 10 MG TAB PO SCH ×2 (07:44→21:56)
[2017-12-09] MEDS: levETIRAcetam 500 MG TAB PO SCH ×2 (07:44→21:57)
[2017-12-09] MEDS: Hydrocortisone Sod Succ/PF 100 mg/2 ml Vial IVP SCH (07:44)
[2017-12-09] MEDS ORDERED: Potassium Chloride 20 MEQ TAB PO SCH (08:32)
[2017-12-09] MEDS ORDERED: Magnesium Oxide 250 MG TAB PO SCH (09:15)
--- NOTE | 2017-12-09 18:08 | PRG ---
DATE OF SERVICE: 12/09/2017 ATTENDING PHYSICIAN: Dr. Umer Marks. SUBJECTIVE: The patient is a 72-year-old female who suffered a ground level fall which resulted in T BI including subarachnoid hemorrhage as well as right convexity subdural hematoma. The patient is aw sandy and talkative this morning; however, she is somewhat confused and does not know where she is. Sh e vocalizes no complaints this morning. OBJECTIVE: VITAL SIGNS: BP 145/70, pulse 73, O2 sat 89% on 2 liters nasal cannula. Repeat blood pressure 151/7 0, pulse 77, O2 sat 90% on 2 liters nasal cannula. GENERAL: The patient is an elderly female in no acute distress. She is sitting in bed eating. HEENT: Normocephalic, atraumatic. RESPIRATORY: Her lung sounds are still somewhat coarse this morning. Moderate rales in the left carol[place] g vaca. Some faint expiratory wheezes in the right. CARDIOVASCULAR: She has regular rate and rhythm. No murmurs, gallops or rubs. ABDOMEN: Soft, nontender, nondistended. Her bowel sounds are normal. EXTREMITIES: She has 1+ pitting edema to the knee bilaterally. She moves all extremities. She is n eurovascularly intact x4. NEUROLOGIC: Her GCS is 15. This morning, she is alert and oriented to person and place. She has no lateralizing signs. LABORATORY DATA: WBC 10.2, hemoglobin 8.9, hematocrit 27.7, and platelets 216. Chemistry: Sodium 1 40, potassium 3.4, chloride 103, bicarbonate 31, BUN 18, creatinine 0.59, glucose 140, calcium 8.1, p hosphorus 4.3, magnesium 1.5. ASSESSMENT: 1. Status post ground level fall. 2. Traumatic subarachnoid hemorrhage. 3. Stable right convexity subdural hematoma. 4. Acute hypokalemia. 5. Acute hypomagnesemia. 6. Acute hypophosphatemia, resolved. 7. Volume overload. PLAN: 1. Continue PT and OT. 2. Continue electrolyte replacement as needed. Recheck labs in the morning. 3. Continue diuresis b.i.d. for volume overload. 4. Case management is assisting with discharge planning. Awaiting insurance authorization for swing bed in [place]. This patient was seen and examined along with Dr. Umer Marks on rounds this morning who agrees wit h assessment and plan.
[2017-12-09] MEDS: Melatonin 3 MG TAB PO SCH (21:40)
[2017-12-09] MEDS: DULoxetine 30 MG CAP PO SCH (21:58)
[2017-12-10] MEDS: Furosemide 20 MG/2 ML VIAL SLOW IVP SCH ×2 (05:36→14:47)
[2017-12-10] MEDS: Lisinopril 10 MG TAB PO SCH ×2 (09:01→20:51)
[2017-12-10] MEDS: levETIRAcetam 500 MG TAB PO SCH ×2 (09:01→20:51)
[2017-12-10] MEDS: Famotidine 20 MG TAB PO SCH ×2 (09:01→18:30)
[2017-12-10] MEDS: Atorvastatin Calcium 20 MG TAB PO SCH (09:01)
[2017-12-10 14:58] LABS: Anion Gap 12 mmol/L (10-20); BUN (Urea Nitrogen) 25 mg/dL (9.8-20.1); Calc. Creatinine Clearance 57 mL/min (70-130); Calcium 8.5 mg/dL (7.8-10.44); Carbon Dioxide 30 mmol/L (23-31); Chloride 100 mmol/L (98-107); Estimated GFR-MDRD 87; Glucose 147 mg/dL (83-110); Magnesium 1.9 mg/dL (1.6-2.6); Potassium 3.7 mmol/L (3.5-5.1); Sodium 138 mmol/L (136-145)
--- NOTE | 2017-12-10 15:35 | PRG ---
DATE OF SERVICE: 12/10/2017 SUBJECTIVE: The patient is a 72-year-old woman, who was reportedly status post ground level fall in which she sustained a diffuse subarachnoid hemorrhage and subdural hematoma. The patient also had so me CHF issues while here in the hospital. Today, though she is out of bed. She is awake, alert, shikha y responsive, eating breakfast without assistance and denies any complaints. PHYSICAL EXAMINATION: VITAL SIGNS: Temperature is 98.3, heart rate 80, blood pressure 133/64, oxygen saturation is 92% on 4 liters. GENERAL: The patient is sitting at the bedside, eating breakfast. She is awake, alert, and oriented x2. Her Matthew coma scale is 15. HEENT: Unremarkable. LUNGS: Have scant wheezing bilaterally. This is markedly improved from my previous examination. HEART: Regular rate and rhythm. ABDOMEN: Soft, flat with active bowel sounds. EXTREMITIES: Neurovascularly intact with 1+ pitting edema distally in lower extremities. LABORATORY DATA: There are no labs or radiographs to review this morning. ASSESSMENT AND PLAN: 1. Status post fall. 2. Traumatic brain injury. 3. Congestive heart failure/volume overload, resolving. Plan will be to continue physical and occupational therapy. We will diurese her one more time today then the plan is for her to go to swing bed facility in [place] possibly this weekend. The evaluat ion and examination were discussed with Dr. Marks this morning.
[2017-12-10] MEDS: Melatonin 3 MG TAB PO SCH (20:51)
[2017-12-10] MEDS: DULoxetine 30 MG CAP PO SCH (20:51)
[2017-12-11 04:00] LABS: #Eosinphils 0.3 thou/uL (0.0-0.7); #Lymphocytes 1.4 thou/uL (1.20-3.40); #Neutrophils 9.6 thou/uL (1.40-6.50); %Eosinophils 2.8 % (0.0-10.0); %Lymphocytes 11.3 % (21.0-51.0); %Monocytes 7.9 % (0.0-10.0); %Neutrophils 77.9 % (42.0-75.0); Hemoglobin 8.7 g/dL (12.0-16.0); Mean Corpuscular HGB CONC 32.7 g/dL (32.0-36.0); Mean Corpuscular Hemoglobin 30.5 pg (27.0-31.0); Mean Corpuscular Volume 93.4 fl (81.0-99.0); Mean Platelet Volume 8.7 fL (7.4-10.4); Platelet Count 235 thou/uL (130-400); RBC Distribution Width 14.5 % (11.5-14.5); Red Blood Cell (RBC) Count 2.84 mill/uL (4.20-5.40); White Blood Cell (WBC) Count 12.3 thou/uL (4.8-10.8)
[2017-12-11 04:26] LABS: Anion Gap 11 mmol/L (10-20); BUN (Urea Nitrogen) 28 mg/dL (9.8-20.1); Calc. Creatinine Clearance 62 mL/min (70-130); Calcium 8.2 mg/dL (7.8-10.44); Carbon Dioxide 31 mmol/L (23-31); Chloride 98 mmol/L (98-107); Estimated GFR-MDRD Greater than 90; Glucose 128 mg/dL (83-110); Magnesium 1.6 mg/dL (1.6-2.6); Phosphorus 2.7 mg/dL (2.3-4.7); Potassium 2.9 mmol/L (3.5-5.1); Sodium 137 mmol/L (136-145)
[2017-12-11] MEDS ORDERED: Potassium Chloride 20 MEQ TAB PO SCH (04:45)
[2017-12-11 08:30] VITALS: BP 130/60; TEMP 98
[2017-12-11] MEDS ORDERED: Furosemide 20 MG TAB PO SCH (09:00)
== END 2017-12-11 08:57 | DRG 82 ==
LOC: ERS 10:15 → CCU 10:44 → 2SE 12-07 11:35
PROVIDERS: ADMIT Surgery; ATTEND Surgery
PROC: 5A1935Z Respiratory Ventilation, Less than 24 Consecutive Hours (ICD-10-PCS; principal; 2017-12-02)
PROC: 30233R1 Transfusion of Nonautologous Platelets into Peripheral Vein, Percutaneous Approach (ICD-10-PCS; 2017-12-02)
DX: S06.6X9A Traumatic subarachnoid hemorrhage with loss of consciousness of unspecified duration, initial encounter (principal); J96.00 Acute respiratory failure, unspecified whether with hypoxia or hypercapnia; S06.5X9A Traumatic subdural hemorrhage with loss of consciousness of unspecified duration, initial encounter; I50.21 Acute systolic (congestive) heart failure; E87.0 Hyperosmolality and hypernatremia; R56.1 Post traumatic seizures; D69.1 Qualitative platelet defects; E83.42 Hypomagnesemia; E83.39 Other disorders of phosphorus metabolism; S02.82XA Fracture of other specified skull and facial bones, left side, initial encounter for closed fracture; R40.2432 Glasgow coma scale score 3-8, at arrival to emergency department; I10 Essential (primary) hypertension; I25.10 Atherosclerotic heart disease of native coronary artery without angina pectoris; E87.6 Hypokalemia; Z95.1 Presence of aortocoronary bypass graft; Z96.642 Presence of left artificial hip joint; Z79.02 Long term (current) use of antithrombotics/antiplatelets; Z79.82 Long term (current) use of aspirin; Z79.899 Other long term (current) drug therapy; W18.30XA Fall on same level, unspecified, initial encounter; Y92.019 Unspecified place in single-family (private) house as the place of occurrence of the external cause
CPT/HCPCS: 36415; 36430; 36556; 51702; 70450; 70496; 71045; 74230; 80048; 80053; 82150; 82533; 82805; 83735; 83880; 84100; 85025; 85610; 85730; 86850; 86900; 86901; 90471; 90682; 94002; 94003; 94640; 94660; 96365; 99292; C1751; G0008; G0390; G8978-GP-CL; G8979-GP-CJ; G8987-GO-CL; G8988-GO-CJ; G8996-GN-CK; G8996-GN-CM; G8996-GN-CN; G8997-GN-CJ; G8997-GN-CL; G8997-GN-CN; J0131; J1720; J1940; J1953; J2250; J2270; J2405; J3010; J3475; J3480; J7050; J7070; J7620; P9035; P9045; Q2036; S0028